=== PATIENT | male | born 1980 | race Caucasian/White ===

== ENCOUNTER → 2017-10-12 11:00 | Outpatient (CLI) | payer MEDICAID, SELFPAY ==
--- NOTE | 2017-10-12 11:07 | XR_ITS ---
XR knee LT 3V HISTORY: ITS.REASON: LT LATERAL KNEE PAIN ORDERING PHYSICIAN: Jazzy Kruger PATIENT AGE: 37 years COMPARISON: None FINDINGS: No fracture or dislocation. No lytic or blastic change. Normal mineralization. No significant arthritic changes evident. No other significant findings IMPRESSION: Negative Knee
== END ==
PROVIDERS: PCP Nurse Practitioner; Visit Provider Nurse Practitioner
DX: M25.562 Pain in left knee (principal)
CPT/HCPCS: 73562

== ENCOUNTER → 2023-06-16 11:18 | Outpatient (CLI) | payer MEDICARE, SELFPAY ==
--- NOTE | 2023-06-16 11:23 | XR_ITS ---
FINAL REPORT CLINICAL HISTORY: PAIN x 3 months FINDINGS: 3 views of the right elbow were obtained. There is no acute fracture or dislocation. The joint spaces are intact. There is not soft tissue abnormality. IMPRESSION: No acute fracture Reviewed, Interpreted and Dictated by Michael Thurman III, MD Transcribed by Mona Cuevas Authenticated and [facility]
== END ==
PROVIDERS: PCP Nurse Practitioner Family; Visit Provider Nurse Practitioner Family
DX: M25.522 Pain in left elbow (principal)
CPT/HCPCS: 73080

== ENCOUNTER 2024-10-03 08:44 | Outpatient (CLI) | payer MEDICARE, SELFPAY ==
--- NOTE | 2024-10-03 08:52 | XR_ITS ---
FINAL REPORT CLINICAL HISTORY: CHRONIC BACK PAIN COMPARISON: None FINDINGS: LUMBAR SPINE 7 views of the lumbar spine were obtained, including flexion and extension views. There is no acute fracture. There is no malalignment. The vertebrae are normal in height. There is mild narrowing of the L5-S1 disc level. There is no instability with flexion or extension. IMPRESSION: No acute process. Reviewed, Interpreted and Dictated by Darren Yi MD Transcribed by Denise Mendenhall Authenticated and [facility]
== END 2024-10-03 23:59 | disposition home or self-care (01) ==
LOC: RAD 08:48
PROVIDERS: PCP Family Medicine; Visit Provider Family Medicine
DX: M54.9 Dorsalgia, unspecified (principal)
CPT/HCPCS: 72114